=== PATIENT | male | born 1945 | race Caucasian/White ===

== ENCOUNTER → 2018-07-31 | Outpatient (CLI) | payer MEDICARE, OTHER ==
[~2018-07-31] MED LIST: ADULT LOW DOSE81 MG PO; ALBUTEROL INH; ALBUTEROL2.5 MG/0.1 INH; COUMADIN7.5 MG PO; HYDROCHLOROTHIA25 M1 PO; LEVAQUIN 500 M500 M2; LEVAQUIN 500 M500 M2 PO; LISINOPRIL20 MG PO; LOPRESSOR50 PO; MUCINEX600 MG; PREDNISONE 10 M10 MG PO; ZYRTEC10 M5 PO
== END ==
LOC: M.RAD 10:57
DX: J44.9 Chronic obstructive pulmonary disease, unspecified (principal); J98.4 Other disorders of lung

== ENCOUNTER 2021-03-19 03:42 | Emergency (ER) | payer OTHER, MEDICARE ==
[~2021-03-19] VITALS: Ht 188 cm; Wt 158.8 kg
[2021-03-19 04:19] LABS: HEMATOCRIT 43.9 % (42.0-52.0); HEMOGLOBIN 14.6 gm/dL (14.0-18.0); MCH 29.8 pg (26.0-34.0); MCHC 33.3 g/dL (28.0-37.0); MCV 89.5 fL (80.0-100.0); MPV 8.2 fl. (7.2-11.1); RBC 4.91 mil/uL (4.50-6.00); RDW-CV 13.1 % (10.5-14.5); WBC 5.2 thou/uL (4.0-11.0)
[2021-03-19 04:32] LABS: APTT 29.8 Seconds (25.0-31.3); INR 1.1; PROTIME 11.7 Seconds (9.20-11.50)
[2021-03-19 04:41] LABS: CALCIUM 7.9 mg/dL (8.5-10.1); POTASSIUM 4.2 mmol/L (3.5-5.1)
[2021-03-19 04:45] LABS: ALBUMIN 3.1 g/dL (3.4-5.0); TOTAL BILIRUBIN 0.6 mg/dL (<0.1-1.0); TOTAL PROTEIN 6.8 g/dL (6.4-8.2)
[2021-03-19] MEDS ORDERED: XARELTO10 M1 PO (05:25)
[2021-03-19] MEDS ORDERED: ANORO ELLIPTA1 EACH INH (05:26)
[2021-03-19] MEDS ORDERED: NEURONTIN100 MG PO (05:27)
[2021-03-19 06:34] VITALS: BP 149/77
--- NOTE | 2021-03-20 11:10 | EKG ---
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[place] : 1945 Requested By: Dalila Calvillo Order Number: [id number] MD: Manuel Noonan Measurements Intervals Gardner Rate: 67 P: -29 NM: 223 QRS: -60 QRSD: 146 T: -17 QT: 425 QTc: 449 Interpretive Statements Sinus rhythm Prolonged NM interval RBBB and LAFB Compared to ECG 12/19/2015 11:58:41 Left anterior fascicular block now present Sinus tachycardia no longer present Myocardial infarct finding no longer present Electronically Signed On 03-20-2021 11:10:26 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
== END 2021-03-19 06:36 | disposition home or self-care (01) ==
LOC: M.ERS 03:42
PROVIDERS: Personal Emergency Response Attendant
DX: S00.83XA Contusion of other part of head, initial encounter (principal); E11.65 Type 2 diabetes mellitus with hyperglycemia; R55 Syncope and collapse; Z86.73 Personal history of transient ischemic attack (TIA), and cerebral infarction without residual deficits; Z86.711 Personal history of pulmonary embolism; Z86.718 Personal history of other venous thrombosis and embolism; Z79.899 Other long term (current) drug therapy; Z88.0 Allergy status to penicillin; W19.XXXA Unspecified fall, initial encounter; Y93.89 Activity, other specified; Y92.89 Other specified places as the place of occurrence of the external cause; Y99.8 Other external cause status